=== PATIENT | male | born 1955 | race Caucasian/White ===

== ENCOUNTER 2019-04-21 07:21 | Emergency (ER) | payer BC ==
[~2019-04-21] VITALS: Ht 185.4 cm; Wt 134.1 kg
[~2019-04-21 07:21] MED LIST: CELEBREX 200MG200 MG PO; CELEBREX200 MG PO; DIOVAN PO; LASIX 20MG TABL20 MG PO; LASIX20 MG PO; LEVOTHYROXINE0.2 MG PO; LORTAB 7.5/5001 TAB; POTASSIUM CH2 MEQ/ML PO; SEPTRA DS 8001 TAB PO; THYROID PO; VIBRAMYCIN HYC100 MG PO; VITAMIN C BUFF500 MG PO; VITAMIN C500 MG PO; ZOCOR 20MG20 MG PO; ZOCOR20 MG PO
[2019-04-21 07:27] VITALS: TEMP 96.5
[2019-04-21 07:52] LABS: ARTERIAL BLD GAS O2 SATURATION 93.5 % (92-100); ARTERIAL BLD GAS TCO2 CT 16.1; ARTERIAL BLOOD GAS BASE EXCESS -10.2 (-2-2); ARTERIAL BLOOD GAS HCO3 15.1 meq/L (22-26); ARTERIAL BLOOD GAS PCO2 31.9 mmHg (35-45); ARTERIAL BLOOD GAS PO2 74.5 mmHg (80-100); ARTERIAL BLOOD GAS pH 7.29 (7.35-7.45)
[2019-04-21 07:57] LABS: BASO # 0.1 (0.0-0.2); EOS # 0.4 (0.0-0.7); EOS % 4.3 % (0-4.0); GRAN # 4.8 (1.4-6.5); GRAN % 57.1 % (42.2-75.2); HEMATOCRIT 45.2 % (42.0-52.0); HEMOGLOBIN 14.3 g/dl (13.5-18.0); LYMPH # 2.8 (1.2-3.4); LYMPH % 33.3 % (20.0-51.0); MEAN CELL VOLUME 88 fl (80.0-100.0); MEAN CORPUSCULAR HEMOGLOBIN 28 pg (27.0-31.0); MEAN CORPUSCULAR HGB CONC 32 g/dl (33.0-37.0); MEAN PLATELET VOLUME 10.3 fl (7.4-10.4); MONO # 0.3 (0.1-0.6); MONO % 3.8 % (1.7-9.3); PLATELET COUNT 314 K/mm3 (130-400); RED BLOOD COUNT 5.14 M/mm3 (4.20-5.60); REDCELL DISTRIBUTION WIDTH-CV 13.6 % (11.5-14.5)
[2019-04-21 08:07] LABS: INR 0.9 (0.8-3.0)
[2019-04-21 08:08] LABS: ALBUMIN 4.7 gm/dL (3.5-5.0); BILIRUBIN,TOTAL 1.3 mg/dL (0.0-1.0); CALCIUM 9.7 mg/dL (8.4-10.2); CREATININE, serum 1.01 (0.66-1.25); POTASSIUM 3.2 mmol/L (3.4-5.0); TOTAL PROTEIN 8.2 gm/dL (6.4-8.2)
[2019-04-21 08:10] LABS: PARTIAL THROMBOPLASTIN TIME 30.4 SECONDS (26.0-37.0)
[2019-04-21 08:19] LABS: TROPONIN-I 0.026 ng/mL (0.000-0.035)
[2019-04-21 10:30] VITALS: BP 141/96; PULSE 103
== END 2019-04-21 10:30 | disposition short-term general hospital (02) ==
LOC: COL.ER 07:21
PROVIDERS: Family Medicine
DX: I50.9 Heart failure, unspecified (principal); I48.20 Chronic atrial fibrillation, unspecified; E87.2 Acidosis
CPT/HCPCS: A4216; J0282; J0692; J1650; J2250; J2704; J3480; J7030; J7060

== ENCOUNTER 2019-08-11 11:52 | Outpatient (RCR) | payer BC | END 2019-08-24 | disposition home or self-care (01) | LOC: COL.CR | DX: I25.2 Old myocardial infarction (principal) ==

== ENCOUNTER → 2019-08-22 | Outpatient (CLI) | payer BC | LOC: COL.RAD 12:15 | DX: M50.10 Cervical disc disorder with radiculopathy, unspecified cervical region (principal); M47.24 Other spondylosis with radiculopathy, thoracic region | CPT/HCPCS: A9585 ==

== ENCOUNTER 2019-08-28 05:55 | Inpatient (IN) | payer BC ==
[~2019-08-28] VITALS: Ht 185.4 cm; Wt 109.9 kg
[2019-08-28 09:06] VITALS: BP 151/76; PULSE 68; TEMP 98.2
--- NOTE | 2019-08-28 09:39 | NUR ---
PT IN CHAIR, AT BEDSIDE, GOING TO TAKE MEDICATIONS HOME, MED LIST OBTAINED, ASSESSMENT PERFORMED, PT PLEASANT. PAIN 3/10 IN LEFT SHOULDER, BEEN GOING ON FOR AWHILE, NO OTHER NEEDS AT THIS TIME.
[2019-08-28 10:41] LABS: BASO # 0.1 (0.0-0.2); EOS # 0.2 (0.0-0.7); EOS % 2.7 % (0-4.0); GRAN # 5.6 (1.4-6.5); GRAN % 69.4 % (42.2-75.2); HEMATOCRIT 37.6 % (42.0-52.0); HEMOGLOBIN 12.6 g/dl (13.5-18.0); LYMPH # 1.7 (1.2-3.4); LYMPH % 20.9 % (20.0-51.0); MEAN CELL VOLUME 89 fl (80.0-100.0); MEAN CORPUSCULAR HEMOGLOBIN 30 pg (27.0-31.0); MEAN CORPUSCULAR HGB CONC 34 g/dl (33.0-37.0); MONO # 0.5 (0.1-0.6); MONO % 5.8 % (1.7-9.3); PLATELET COUNT 263 K/mm3 (130-400); RED BLOOD COUNT 4.24 M/mm3 (4.20-5.60); REDCELL DISTRIBUTION WIDTH-CV 12.5 % (11.5-14.5)
[2019-08-28 10:44] LABS: INR 1.3 (0.8-3.0)
[2019-08-28 10:55] LABS: ALBUMIN 4.5 gm/dL (3.5-5.0); BILIRUBIN,TOTAL 1.2 mg/dL (0.0-1.0); CALCIUM 10.2 mg/dL (8.4-10.2); CREATININE, serum 0.83 (0.66-1.25); MAGNESIUM 1.6 mg/dL (1.6-2.3); POTASSIUM 3.6 mmol/L (3.4-5.0); TOTAL PROTEIN 7.7 gm/dL (6.4-8.2)
[2019-08-28] MEDS ORDERED: ELIQUIS 5MG PO (11:00)
[2019-08-28] MEDS ORDERED: ASPIRIN 81M81 MG/TA2 PO (11:01)
[2019-08-28] MEDS ORDERED: TYLENOL 325MG325 MG PO (11:01)
[2019-08-28] MEDS ORDERED: LASIX 40MG TABL40 MG PO (11:02)
[2019-08-28] MEDS ORDERED: LIPITOR 40MG TA40 MG PO (11:02)
[2019-08-28] MEDS ORDERED: SYNTHROID0.2 MG/TAB PO (11:04)
[2019-08-28] MEDS ORDERED: COZAAR100 MG PO (11:05)
[2019-08-28] MEDS ORDERED: GLUCOPHAGE1000 MG PO (11:06)
[2019-08-28] MEDS ORDERED: TOPROL XL 50MG50 MG PO (11:07)
[2019-08-28] MEDS ORDERED: OZEMPIC1 MG/0.75 SQ (11:08)
[2019-08-28] MEDS ORDERED: K-TAB20 PO (11:10)
[2019-08-28] MEDS ORDERED: VITAMINC1000TA PO (11:10)
[2019-08-28 11:24] VITALS: BP 161/85; PULSE 58; TEMP 97.9
--- NOTE | 2019-08-28 13:00 | NUR ---
PAGED CARDIOLOGY FOR POTENTIAL NEED OF BS CHECKS AND AN ADDITION OF CARB CONTROL TO HIS DIET. CARDIOLOGY DID NOT RETURN PAGE.
[2019-08-28 16:25] VITALS: BP 159/85; PULSE 59; TEMP 97.6
--- NOTE | 2019-08-28 17:24 | NUR ---
PT COMFORTABLE IN ROOM. PT WALKED HALLS TO STRETCH HIS LEGS, NEW MASK PROVIDED FOR HIM. PT RECIEVED TYLENOL FOR L SHOULDER PAIN. MAGNESIUM INFUSED, POTASSIUM GIVEN, 2 HOUR POST SOTOLOL EKG OBTAINED. WATER AT BEDSIDE. NO OTHER NEEDS AT THIS TIME.
[2019-08-28 19:41] VITALS: BP 152/78; PULSE 56; TEMP 97.6
--- NOTE | 2019-08-28 20:25 | NUR ---
Pt. sitting up in chair at this time. Pt. is A&OX3, assessment complete. INT to rt. forearm patent. Pt. reported pain to rt. shoulder. Informed pt. that could not give Tylenol til 2199. Pt. voices understanding. Pt. denies further needs, call light within reach.
[2019-08-29 00:13] VITALS: BP 145/67; PULSE 63; TEMP 97.7
[2019-08-29 03:50] VITALS: BP 137/68; PULSE 60; TEMP 97.8
--- NOTE | 2019-08-29 07:14 | NUR ---
REPORT RECIEVED FROM KI DONG. PT IN BED JUST WAKING UP, PLEASANT, NOT COMPLAINING OF L SHOULDER PAIN AT THIS TIME. BED IN LOW POSITION, NO OTHER NEEDS AT THIS TIME.
[2019-08-29 07:31] VITALS: BP 156/66; PULSE 64; TEMP 98.2
[2019-08-29 07:56] LABS: BASO # 0.1 (0.0-0.2); BASO % 0.7 % (0.0-2.0); EOS # 0.3 (0.0-0.7); EOS % 3.7 % (0-4.0); GRAN # 4.7 (1.4-6.5); GRAN % 63.7 % (42.2-75.2); HEMOGLOBIN 11.9 g/dl (13.5-18.0); LYMPH # 1.9 (1.2-3.4); LYMPH % 25.6 % (20.0-51.0); MEAN CELL VOLUME 89 fl (80.0-100.0); MEAN CORPUSCULAR HEMOGLOBIN 30 pg (27.0-31.0); MEAN CORPUSCULAR HGB CONC 33 g/dl (33.0-37.0); MEAN PLATELET VOLUME 10.2 fl (7.4-10.4); MONO # 0.4 (0.1-0.6); PLATELET COUNT 245 K/mm3 (130-400); RED BLOOD COUNT 4.01 M/mm3 (4.20-5.60); REDCELL DISTRIBUTION WIDTH-CV 12.3 % (11.5-14.5)
[2019-08-29 08:19] LABS: HEMATOCRIT 35.8 % (42.0-52.0)
[2019-08-29 08:22] LABS: CALCIUM 9.3 mg/dL (8.4-10.2); CREATININE, serum 0.73 (0.66-1.25); MAGNESIUM 2.1 mg/dL (1.6-2.3); POTASSIUM 3.8 mmol/L (3.4-5.0)
--- NOTE | 2019-08-29 08:55 | NUR ---
PT UP TO SIDE OF BED, REPORTING PAIN IN L SHOULDER WITH AN ACHING/SHOOTING PAIN. WATER AT BEDSIDE, NO OTHER NEEDS AT THIS TIME.
[2019-08-29 12:57] VITALS: BP 110/50; PULSE 69
--- NOTE | 2019-08-29 13:38 | NUR ---
SW met with the patient to discuss discharge plan. The patient lives in [place] with his , Jong ([phone]). He reports independence with ADLs and has a cane. The patient's PCP is Dr. Richard Costa and he receives his medications at [facility]. He reports no difficulties obtaining his meds. The patient does not have advanced directives and he was not interested in completing them at this time. The patient plans to return home with his upon discharge. No additional needs at this time.
[2019-08-29 16:30] VITALS: BP 111/69; PULSE 60; TEMP 97.8
--- NOTE | 2019-08-29 18:07 | NUR ---
PT COMPLAINING OF SMALL HEADACHE CONSISTENT ALL DAY, TYLENOL HAS BEEN GIVEN, PT HAS NO OTHER NEEDS AT THIS TIME. PT VERY REPETETIVE DURING CONVERSATION, LEFT SHOULDER PAIN UNDER CONTROL AT THIS TIME. WATER AND DIET PEPSI BROUGHT IN PER PATIENT REQUEST, AT BEDSIDE. PT STILL IN NSR. NO OTHER NEEDS AT THIS TIME.
[2019-08-29 19:46] VITALS: BP 136/78; PULSE 62; TEMP 97.5
--- NOTE | 2019-08-29 20:14 | NUR ---
Pt assessment completed. Pt sitting up in chair at this time. Pt alert and oriented x4. Pt states he is having 4/10 pain to his upper mid back that radiates to his left shoulder and describes the pain as "dull". INT to right forearm patent and free of complications. Pt denies any other needs at this time. Call light within reach. Will continue to monitor.
[2019-08-30 00:11] VITALS: BP 143/76; PULSE 64; TEMP 97.7
--- NOTE | 2019-08-30 02:06 | NUR ---
Pt resting in bed at this time. No s/s of pain noted. Call light within reach. Will continue to monitor.
[2019-08-30 03:46] VITALS: BP 106/53; PULSE 61; TEMP 97.8
--- NOTE | 2019-08-30 05:43 | NUR ---
Pt had uneventful shift. Pt states that he was able to get good rest during the night. Complaints of intermittent pain during the shift to the upper part of his back that would radiate to his left shoulder. PRN tylenol given once per orders for pain. IV to right forearm free of complications. Pt denies any other needs. Call light within reach. Will continue to monitor.
--- NOTE | 2019-08-30 06:49 | NUR ---
REPORT GIVEN TO LETITIA OLIVEROS
[2019-08-30 07:30] LABS: BASO # 0.1 (0.0-0.2); BASO % 0.6 % (0.0-2.0); EOS # 0.2 (0.0-0.7); EOS % 3.1 % (0-4.0); GRAN # 5.1 (1.4-6.5); GRAN % 65.2 % (42.2-75.2); HEMOGLOBIN 11.9 g/dl (13.5-18.0); LYMPH # 1.9 (1.2-3.4); LYMPH % 24.7 % (20.0-51.0); MEAN CELL VOLUME 89 fl (80.0-100.0); MEAN CORPUSCULAR HEMOGLOBIN 30 pg (27.0-31.0); MEAN CORPUSCULAR HGB CONC 33 g/dl (33.0-37.0); MEAN PLATELET VOLUME 9.9 fl (7.4-10.4); MONO # 0.5 (0.1-0.6); PLATELET COUNT 244 K/mm3 (130-400); RED BLOOD COUNT 4.04 M/mm3 (4.20-5.60); REDCELL DISTRIBUTION WIDTH-CV 12.4 % (11.5-14.5)
[2019-08-30 07:41] LABS: HEMATOCRIT 36.1 % (42.0-52.0)
[2019-08-30 07:47] LABS: CALCIUM 9.5 mg/dL (8.4-10.2); CREATININE, serum 0.82 (0.66-1.25)
[2019-08-30 08:23] VITALS: BP 152/68; PULSE 70; TEMP 98.2
--- NOTE | 2019-08-30 08:41 | NUR ---
Assessment completed, alert/oriented, vital signs stable, denies chest pain or discomfort/ still report left arm "aches" and a slight headache, I gave Tylenol per patient request, heart RRR/ SR on tele, Qtc WNL on EKG and Sotalol dose given, today is day #3 of medication initiation and I anticipate he will discharge home today, patient is at bedside eating breakfast and denies other needs at this time
--- NOTE | 2019-08-30 11:37 | NUR ---
First visit from the carrier associate. No needs right now.
[2019-08-30] MEDS ORDERED: BETAPACE 80MG80 MG PO (12:11)
[2019-08-30] MEDS ORDERED: IMDUR 30MG30 MG/TAB PO (12:11)
--- NOTE | 2019-08-30 14:59 | NUR ---
Discharge instructions reviewed with the patient, instructed to follow up with PCP and Cardiology as we have scheduled for him, instructed to take new meds as prescribed, scripts for Imdur and Sotalol sent to pharmacy for him, removed IV and tele, leaving with his , I escorted ihm out the door
== END 2019-08-30 15:01 | disposition home or self-care (01) | DRG 310 ==
LOC: MEDICAL 05:55
PROVIDERS: ADMIT Internal Medicine Adult Congenital Heart Disease
DX: I48.0 Paroxysmal atrial fibrillation (principal)
CPT/HCPCS: J3475

== ENCOUNTER 2023-03-17 09:49 | Emergency (ER) | payer MEDICARE, BC ==
[~2023-03-17] VITALS: Wt 118.2 kg
[~2023-03-17 09:49] MED LIST changes: +ASPIRIN 81M81 MG/TA2 PO; +BETAPACE 80MG80 MG PO; +COZAAR100 MG PO; +ELIQUIS 5MG PO; +GLUCOPHAGE1000 MG PO; +IMDUR 30MG30 MG/TAB PO; +K-TAB20 PO; +LASIX 40MG TABL40 MG PO; +LIPITOR 40MG TA40 MG PO; +OZEMPIC1 MG/0.75 SQ; +SYNTHROID0.2 MG/TAB PO; +TOPROL XL 50MG50 MG PO; +TYLENOL 325MG325 MG PO; +VITAMINC1000TA PO
[2023-03-17 09:59] VITALS: TEMP 98.5
[2023-03-17 12:02] VITALS: BP 163/86; PULSE 72
== END 2023-03-17 12:02 | disposition home or self-care (01) ==
LOC: COL.ER 09:49
DX: S01.01XA Laceration without foreign body of scalp, initial encounter (principal); Z79.01 Long term (current) use of anticoagulants; W01.198A Fall on same level from slipping, tripping and stumbling with subsequent striking against other object, initial encounter; Y93.01 Activity, walking, marching and hiking